=== PATIENT | male | born 1975 | race Caucasian/White ===

== ENCOUNTER 2021-09-30 17:08 | Emergency (ER) | payer OTHER ==
[2021-09-30 18:05] LABS: HEMOGLOBIN 14.1 gm/dl (14.0-17.5); RED BLOOD COUNT 4.43 M/UL (4.20-5.50); WHITE BLOOD COUNT 6.8 K/UL (4.5-11.0)
[2021-09-30 18:50] LABS: BUN/CREATININE RATIO 15 (0-10)
[2021-09-30] MEDS ORDERED: DOXYCYCLINE MO100 MG PO (19:03)
[2021-09-30] MEDS ORDERED: PREDNISONE 50 M50 MG PO (19:03)
== END 2021-09-30 19:36 | disposition home or self-care (01) ==
LOC: ER1 17:08
PROVIDERS: Emergency Medicine
DX: J18.9 Pneumonia, unspecified organism (principal); I10 Essential (primary) hypertension; Z88.0 Allergy status to penicillin; F17.200 Nicotine dependence, unspecified, uncomplicated; R07.89 Other chest pain
CPT/HCPCS: 71045; 80053; 82550; 82553; 84484; 85025; 99285